=== PATIENT | female | born 1985 | race African-American/Black ===

== ENCOUNTER 2020-07-31 17:33 | Emergency (ER) | payer SELFPAY ==
[~2020-07-31] VITALS: Ht 170.2 cm; Wt 68.0 kg
[~2020-07-31 17:33] MED LIST: AMOXICILLIN500 MG PO; ARTIFICIAL TEA1 EAC2 OP; ASCORBIC ACID500 MG ORAL; BLEPH-105 ML OP; GENTAK3.5 GM OP; IBUPROFEN600 MG PO; NKM; VIBRAMYCIN100 MG ORAL; VIGAMOX1 DROP BOTH EYES; [UNRECOGNIZED DRUG - OTHER]; atropine sulfate
[2020-07-31 17:40] VITALS: BP 123/82
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
[2020-07-31] MEDS ORDERED: LIDODERM700 M1 TOPIC (21:08)
[2020-07-31] MEDS ORDERED: ROBAXIN-750750 MG PO (21:08)
[2020-07-31] MEDS ORDERED: IBUPROFEN600 M1 ORAL (21:08)
== END 2020-07-31 18:14 | disposition left against medical advice (07) ==
LOC: EMR 18:09
DX: Z53.21 Procedure and treatment not carried out due to patient leaving prior to being seen by health care provider (principal)

== ENCOUNTER 2020-07-31 20:13 | Emergency (ER) | payer SELFPAY ==
[~2020-07-31] VITALS: Ht 170.2 cm; Wt 68.0 kg
[2020-07-31 20:41] VITALS: BP 122/83
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
[2020-07-31] MEDS ORDERED: IBUPROFEN600 M1 ORAL (21:08)
[2020-07-31] MEDS ORDERED: ROBAXIN-750750 MG PO (21:08)
[2020-07-31] MEDS ORDERED: LIDODERM700 M1 TOPIC (21:08)
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
[2020-07-31 21:15] VITALS: BP 116/82
--- NOTE | 2020-07-31 21:15 | NUR ---
ER DISCHARGE NOTE: Patient is cleared to be discharged per ERMD. DC paperwork and paper prescriptions given. pt is aox4, on room air, with stable vital signs. pt id band removed. pt is able to ambulate with steady gait. pt took all belongings.
== END 2020-07-31 21:15 | disposition home or self-care (01) ==
LOC: EMR 20:30
DX: S39.012A Strain of muscle, fascia and tendon of lower back, initial encounter (principal); V43.52XA Car driver injured in collision with other type car in traffic accident, initial encounter; Y92.410 Unspecified street and highway as the place of occurrence of the external cause; M25.512 Pain in left shoulder; M25.511 Pain in right shoulder; M79.662 Pain in left lower leg; M79.661 Pain in right lower leg; M25.571 Pain in right ankle and joints of right foot
CPT/HCPCS: 99282